=== PATIENT | male | born 1990 | race Asian ===

== ENCOUNTER 2021-07-21 08:28 | Emergency (ER) | payer MEDICAID ==
[~2021-07-21] VITALS: Ht 172.7 cm; Wt 95.3 kg
[2021-07-21 08:28] VITALS: BP_SYST 144
--- NOTE | 2021-07-21 08:28 | NUR ---
BROUGHT BACK TO BED #3 AND TRIAGED. REPORT GIVEN TO DORON
--- NOTE | 2021-07-21 09:10 | NUR ---
PATIENT AAOX4 AND AMBULATORY FROM HOME C/O ABDOMINAL PAIN X4 DAYS STATING INTERMITTENT PAIN SUBSTERNAL. DENIES ANY N/V/D. WAS SEEN BY AN MD IN [facility] AND WAS DIAGNOSED WITH GERD, H.PYLORI AND TAKING ABTX FOR IT. STATED FEELING BETTER BUT NOW HAVING THE PAIN AGAIN. STATES TAKING TUMS WITH MINIMAL RELIEF. ABDOMEN SOFT AND NONTENDER.
--- NOTE | 2021-07-21 09:30 | NUR ---
MD mnadel at bedside with patient.
--- NOTE | 2021-07-21 09:42 | NUR ---
lab at bedside to do blood draw
[2021-07-21] MEDS ORDERED: MAG HYDROX/AL HYDROX/SIMETH 30 ML, DICYCLOMINE HCL 20 MG, LIDOCAINE VISCOUS 2% 15ML (PO... PO ONE ×3 (09:45)
[2021-07-21] MEDS ORDERED: PRO40 PO ×2 (09:52→10:11)
[2021-07-21] MEDS ORDERED: DICY10CA13 PO ×2 (09:52→10:11)
[2021-07-21 10:23] LABS: BASOPHILS % (AUTO) 0.5 % (0.0-2.0); EOSINOPHILS # (AUTO) 0.1 K/uL (0.0-0.4); HEMATOCRIT 45.5 % (36-54); HEMOGLOBIN 15.5 g/dL (14.0-18.0); LYMPHOCYTES # (AUTO) 1.7 K/uL (1.0-5.5); LYMPHOCYTES % (AUTO) 22.8 % (20.5-51.5); MEAN CORPUSCULAR HEMOGLOBIN 31 pg (27-31); MEAN CORPUSCULAR HGB CONC 34 % (32-36); MEAN CORPUSCULAR VOLUME 91 fL (79.0-98.0); MONOCYTES # (AUTO) 0.3 K/uL (0.0-1.0); MONOCYTES % (AUTO) 4.5 % (1.7-9.3); NEUTROPHILS # (AUTO) 5.3 K/uL (1.8-7.7); NEUTROPHILS % (AUTO) 71.2 % (40.0-70.0); PLATELET COUNT (AUTO) 183 K/uL (130-430); RED BLOOD CELL COUNT(AUTO) 4.98 MIL/uL (4.2-6.2); WHITE BLOOD COUNT (AUTO) 7.5 K/uL (4.8-10.8)
[2021-07-21 10:30] LABS: CALCIUM 9.1 mg/dL (8.4-11.0); CREATININE 1.05 mg/dL (0.55-1.30); POTASSIUM 4.3 mmol/L (3.5-5.1)
[2021-07-21 10:35] LABS: ALBUMIN 4.2 g/dL (3.4-4.8); TOTAL BILIRUBIN 0.5 mg/dL (0.0-1.0)
[2021-07-21] MEDS ORDERED: ANT30 PO (10:57)
[2021-07-21 11:07] VITALS: BP_SYST 144
--- NOTE | 2021-07-21 11:09 | NUR ---
Patient given written and verbal discharge instructions and verbalizes understanding. DR. ART PARRY MD discussed with patient the results and treatment provided. Patient in stable condition. ID arm band removed. Rx of DICYCLOMINE, PROTONIX, MYLANTA given. Patient educated on pain management and to follow up with PMD. Pain Scale 0/10 Opportunity for questions provided and answered. Medication side effect fact sheet provided.
== END 2021-07-21 11:09 | disposition home or self-care (01) ==
LOC: SED 08:28
DX: K29.00 Acute gastritis without bleeding (principal); B96.81 Helicobacter pylori [H. pylori] as the cause of diseases classified elsewhere; K21.9 Gastro-esophageal reflux disease without esophagitis
CPT/HCPCS: 36415; 74018; 80053; 83690; 85025; 99284; J2001

== ENCOUNTER 2021-07-31 00:48 | Emergency (ER) | payer MEDICAID ==
[~2021-07-31] VITALS: Ht 177.8 cm; Wt 95.3 kg
[~2021-07-31 00:48] MED LIST: ANT30 PO; DICY10CA13 PO; PRO40 PO
[2021-07-31 01:00] VITALS: BP_SYST 134
[2021-07-31 03:20] LABS: BASOPHILS % (AUTO) 0.2 % (0.0-2.0); EOSINOPHILS % (AUTO) 0.2 % (0.0-4.0); HEMATOCRIT 45.1 % (36-54); HEMOGLOBIN 15.6 g/dL (14.0-18.0); LYMPHOCYTES # (AUTO) 1.3 K/uL (1.0-5.5); LYMPHOCYTES % (AUTO) 10.4 % (20.5-51.5); MEAN CORPUSCULAR HEMOGLOBIN 31 pg (27-31); MEAN CORPUSCULAR HGB CONC 35 % (32-36); MEAN CORPUSCULAR VOLUME 91 fL (79.0-98.0); MONOCYTES # (AUTO) 0.4 K/uL (0.0-1.0); MONOCYTES % (AUTO) 3.6 % (1.7-9.3); NEUTROPHILS # (AUTO) 10.8 K/uL (1.8-7.7); NEUTROPHILS % (AUTO) 85.6 % (40.0-70.0); PLATELET COUNT (AUTO) 181 K/uL (130-430); RED BLOOD CELL COUNT(AUTO) 4.96 MIL/uL (4.2-6.2); RED CELL DISTRIBUTION WIDTH 12.9 % (9.0-15.0); WHITE BLOOD COUNT (AUTO) 12.6 K/uL (4.8-10.8)
[2021-07-31 03:37] LABS: CALCIUM 9.6 mg/dL (8.4-11.0); CREATININE 1.1 mg/dL (0.55-1.30)
[2021-07-31 03:44] LABS: ALBUMIN 4.3 g/dL (3.4-4.8); TOTAL BILIRUBIN 0.6 mg/dL (0.0-1.0)
[2021-07-31] MEDS ORDERED: MAG HYDROX/AL HYDROX/SIMETH 30 ML, DICYCLOMINE HCL 20 MG, LIDOCAINE VISCOUS 2% 15ML (PO... PO ONE ×3 (04:30)
[2021-07-31] MEDS ORDERED: SUCR1ORA4 PO (04:41)
[2021-07-31] MEDS ORDERED: PROM5SYR PO (04:41)
[2021-07-31 04:53] VITALS: BP_SYST 129
== END 2021-07-31 04:53 | disposition home or self-care (01) ==
LOC: SED 00:48
DX: K29.70 Gastritis, unspecified, without bleeding (principal); K21.9 Gastro-esophageal reflux disease without esophagitis
CPT/HCPCS: 36415; 80053; 83690; 85025; 99283; J2001